=== PATIENT | female | born 1945 | race Caucasian/White ===

== ENCOUNTER 2018-11-09 08:13 | Inpatient (IN) | payer MEDICARE, BC ==
[2018-11-09] VITALS (13 sets, daily range): BP systolic 120–162; BP diastolic 65–81
[~2018-11-09] VITALS: Ht 162.6 cm; Wt 91.8 kg
[~2018-11-09 08:13] MED LIST: ALIS1TAB PO; CALC1TAB PO; CHOL100046 PO; DOCU100C40 PO; HYDR-3965 PO; MAGN64TA8 PO; POTA99TA6 PO; PREVCR VG; THYR65TA6 PO; UBID100C45 PO; VITA150T PO; [UNRECOGNIZED DRUG - OTHER] PO
[2018-11-09] MEDS ORDERED: normal saline 1000ML IV soln IVB ONE (08:25)
[2018-11-09] MEDS ORDERED: ondansetron/PF 4mg/2ml inj IV ONE (08:25)
[2018-11-09 09:06] LABS: BASOPHILS % (AUTO) 0.1 % (0-1); EOSINOPHILS % (AUTO) 0 % (0-6); HEMATOCRIT 46.4 % (35.0-45.0); HEMOGLOBIN 15.4 g/dl (12.0-16.0); LYMPHOCYTES # (AUTO) 0.8 X10'3 (1.1-4.8); LYMPHOCYTES % (AUTO) 8.9 % (21-51); MEAN CORPUSCULAR HEMOGLOBIN 29.7 PG (27.0-31.0); MEAN CORPUSCULAR HGB CONC 33.1 g/dL (33.0-36.5); MEAN CORPUSCULAR VOLUME 89.6 FL (78-98); MEAN PLATELET VOLUME 9.7 FL (7.4-10.4); MONOCYTES % (AUTO) 10.4 % (2-12); NEUTROPHILS # (AUTO) 7.4 X10'3 (1.8-7.7); NEUTROPHILS % (AUTO) 80.6 % (42-75); PLATELET COUNT 362 X10'3 (140-440); RED BLOOD COUNT 5.18 X10'6 (4.20-5.60); RED CELL DISTRIBUTION WIDTH 13.7 % (11.5-14.5); WHITE BLOOD COUNT 9.1 X10'3 (4.5-11.0)
[2018-11-09 09:13] LABS: ALANINE AMINOTRANSFERASE 31 U/L (12-78); ALBUMIN 3.6 G/DL (3.4-5.0); ALKALINE PHOSPHATASE 74 IU/L (46-116); ANION GAP 13 (8-16); ASPARTATE AMINO TRANSFERASE 25 U/L (10-37); BILIRUBIN,TOTAL 0.8 MG/DL (0.1-1.0); BLOOD UREA NITROGEN 41 MG/DL (7-18); BUN/CREATININE RATIO 27.7 (6.6-38.0); CALCIUM 9.9 MG/DL (8.5-10.1); CHLORIDE 99 MMOL/L (99-107); CREATININE 1.48 MG/DL (0.40-0.90); GLUCOSE 143 MG/DL (70-104); POTASSIUM 3.1 MMOL/L (3.5-5.1); SODIUM 139 MMOL/L (135-145); TOTAL PROTEIN 7.3 G/DL (6.4-8.2); eGFR 34 ML/MIN
[2018-11-09] MEDS ORDERED: ONDA4TAB6 PO (09:17)
[2018-11-09 09:41] LABS: CLARITY,URINE CLOUDY (Clear); COLOR,URINE YELLOW (Yellow); GLUCOSE, URINE NEGATIVE (Neg); KETONES,URINE TRACE mg/dl (Neg); LEUKOCYTE ESTERASE ,URINE TRACE (Neg); NITRITES, URINE NEGATIVE (Neg); OCCULT BLOOD,URINE NEGATIVE (Neg); PROTEIN,URINE >=300 mg/dl (Neg)
[2018-11-09 09:47] LABS: UA COLLECTION TYPE CLN CATCH MIDSTREAM
[2018-11-09 09:53] LABS: BACTERIA,URINE 2+ /HPF (Neg); SQUAMOUS EPITHELIAL CELL,UR MANY /LPF (FEW)
[2018-11-09 09:54] LABS: RBC,URINE 0-2 /HPF (0-2); WBC,URINE 0-4 /HPF (0-4)
[2018-11-09] MEDS ORDERED: potassium Cl 20 mEq SR tablet PO PRN ×2 (09:55)
[2018-11-09] MEDS ORDERED: magnesium 4gm in 100ml NS 100 ML IV PRN (09:55)
[2018-11-09] MEDS ORDERED: acetaminophen 650mg rectal suppository RC PRN (09:55)
[2018-11-09] MEDS ORDERED: ondansetron/PF 4mg/2ml inj IV PRN ×2 (09:55→17:20)
[2018-11-09] MEDS ORDERED: magnesium 2GM in 50ml NS 50 ML IV PRN (09:55)
[2018-11-09] MEDS ORDERED: potassium CL 10mEq/100ml bag 100 ML IV PRN ×2 (09:55)
[2018-11-09] MEDS ORDERED: normal saline 1000ml 1,000 ML IV SCH (09:55)
[2018-11-09] MEDS: potassium Cl 20mEq in NS 1,000 ML IV SCH ×2 (12:30→22:27)
--- NOTE | 2018-11-09 15:59 | NUR ---
Received patient report from ER nurse Shawn QUINTERO. Awaiting arrival to room 340B.
[2018-11-09] MEDS ORDERED: ringers solution, lacted 1,000 ML IV SCH (17:17)
[2018-11-09] MEDS ORDERED: proCHLORperazine 10 MG/2 ml inj IV PRN (17:20)
[2018-11-09] MEDS ORDERED: meperidine/PF 25mg/ml syringe IV PRN ×3 (17:20)
[2018-11-09] MEDS ORDERED: morphine 4 MG/ML inj SYRINge IV PRN ×2 (17:20)
--- NOTE | 2018-11-09 18:20 | NUR ---
Patient down to OR. I have received report from LEON Moreau and had the opportunity to ask questions and assume patient care.
--- NOTE | 2018-11-09 18:26 | NUR ---
Problems reprioritized. Patient report given, questions answered & plan of care reviewed with Aroldo QUINTERO.
[2018-11-09] MEDS ORDERED: neostigmine methylsulfate 1 MG/ML 10ml vial ONE (18:42)
[2018-11-09] MEDS ORDERED: glycopyrrolate 0.2mg/ml inj ONE (18:42)
[2018-11-09] MEDS ORDERED: ondansetron/PF 4mg/2ml inj ONE (18:42)
[2018-11-09] MEDS ORDERED: dexamethasone sod phosphate 10mg/ml inj ONE (18:42)
[2018-11-09] MEDS ORDERED: LIDOcaine 1%/PF 5ML 10 MG/ML VIAL ONE (18:42)
[2018-11-09] MEDS ORDERED: desflurane 240ml liquid inh. IH ONE (18:42)
[2018-11-09] MEDS ORDERED: fentaNYL /PF 50mcg/ml 5ml ampule ONE (18:45)
[2018-11-09] MEDS ORDERED: midazolam 2 mg/2 ml injection ONE (18:45)
[2018-11-09] MEDS ORDERED: propofol inj 20 ML IV ONE (18:46)
[2018-11-09] MEDS ORDERED: rocuronium 10mg/ml inj IV ONE (18:46)
[2018-11-09] MEDS ORDERED: ceFOXitin 2 GM ADDVANTGE BAG 50 ML IV ONE (19:10)
[2018-11-09] MEDS ORDERED: BUPIVAcaine/PF 2.5mg/ml (0.25%) 10ml vial ONE (19:40)
[2018-11-09] MEDS ORDERED: BUPIVACAINE liposomal/PF 13.3 MG/ML vial IM ONE ×2 (19:40)
[2018-11-09] MEDS ORDERED: BUPIVAcaine/PF 2.5 mg/ml (0.25%) 30ml vial ONE (19:41)
[2018-11-09] MEDS ORDERED: mupirocin 2% ointment 22GM ONE (19:57)
--- NOTE | 2018-11-09 20:36 | NUR ---
Received from OR via , accompanied by DR. WRIGHT, Anesthesiologist and report given by Anesthesiolgist.S/P EXP. LAP PER DR. MAHAN. PT. A X O X 4. APPROP. RESP. EVEN & UNLABORED. ABD. SOFT, [place]LAND BANDAGE DRGS W/ FEW FAINT SANG SHADOWS NOTED. MATAMOROS TO GRAVITY W/ CL. YELLOW URINE. LT. ARM IV PATENT. DENIES PAIN @ THIS TIME. NG TUBE DC'D PER ORDER DR. WRIGHT. PT. REASSURED.
--- NOTE | 2018-11-09 20:45 | NUR ---
REPORT GIVEN TO DADA CHURCH RN. CARE TRANSFERRED.
--- NOTE | 2018-11-09 20:46 | NUR ---
REPORT RECEIVED FROM GRIFFIN QUINTERO, CARE ASSUMED. PT IS AWAKE, ALERT, MOVING EXT X 4, SKIN WARM AND PINK, NO C/O PAIN, PIV PATENT LEFT FA 18G WITH BOLUS OF 500MLS ORDERED BY DR RUBIN, SCDS, MIDLINE ISLAND DRESSING WITH SHADOW OF SANQ DRAINAGE, MATAMOROS TO GRAVITY WITH DARK YELLOW URINE, RIGHT GROIN EXCORIATED, VSS.
--- NOTE | 2018-11-09 20:56 | NUR ---
report called from recovery room, Savita QUINTERO. awaiting pt arrival to unit
--- NOTE | 2018-11-09 21:06 | NUR ---
Report called to receiving nurse. Transferred via [facility] . Special Issues communicated to receiving nurse TOMAS QUINTERO. PT IS AWAKE, ALERT, MOVES EXT X 4, SKIN WARM AND PINK MATAMOROS EMPTIED AND TO GRAVITY, PIV PATENT WITH 500ML BOLUS ORDERED BY DR RUBIN IN PROGRESS, RIGHT GROIN ESCORIATED, MID[place] ISLAND DRESSING SHADOW WITH SANQ DRAINAGE, NO C/O PAIN, KIRSTIN ICE CHIPS, MEETS DISCHARGE CRITERIA.
--- NOTE | 2018-11-09 21:11 | NUR ---
pt brought to unit from recovery via gurney. placed in room, in no apparent distress. slight shadowing of island dressing over surgical site. 97.7F 120/75 97% 3L 18RR, 94HR Will continue to monitor
[2018-11-09] MEDS: heparin, porcine 5000 units/ml vial SQ SCH (21:53)
[2018-11-10] VITALS: BP 140/79
[2018-11-10 04:00] VITALS: BP 149/76
[2018-11-10 04:41] LABS: BASOPHILS % (AUTO) 0.1 % (0-1); EOSINOPHILS % (AUTO) 0 % (0-6); HEMATOCRIT 44.6 % (35.0-45.0); LYMPHOCYTES # (AUTO) 0.5 X10'3 (1.1-4.8); LYMPHOCYTES % (AUTO) 7.2 % (21-51); MEAN CORPUSCULAR HEMOGLOBIN 30.2 PG (27.0-31.0); MEAN CORPUSCULAR HGB CONC 33.5 g/dL (33.0-36.5); MEAN PLATELET VOLUME 9.7 FL (7.4-10.4); MONOCYTES # (AUTO) 0.9 X10'3 (0-0.9); NEUTROPHILS # (AUTO) 6.1 X10'3 (1.8-7.7); NEUTROPHILS % (AUTO) 80.7 % (42-75); PLATELET COUNT 322 X10'3 (140-440); RED BLOOD COUNT 4.95 X10'6 (4.20-5.60); RED CELL DISTRIBUTION WIDTH 13.7 % (11.5-14.5); WHITE BLOOD COUNT 7.6 X10'3 (4.5-11.0)
[2018-11-10 04:52] LABS: ALANINE AMINOTRANSFERASE 41 U/L (12-78); ALBUMIN 2.9 G/DL (3.4-5.0); ALBUMIN/GLOBULIN RATIO 0.9 (1.1-1.5); ALKALINE PHOSPHATASE 57 IU/L (46-116); ANION GAP 10 (8-16); ASPARTATE AMINO TRANSFERASE 28 U/L (10-37); BILIRUBIN,TOTAL 0.9 MG/DL (0.1-1.0); BLOOD UREA NITROGEN 49 MG/DL (7-18); CALCIUM 8.6 MG/DL (8.5-10.1); CHLORIDE 103 MMOL/L (99-107); CREATININE 1.53 MG/DL (0.40-0.90); GLUCOSE 134 MG/DL (70-104); MAGNESIUM 1.9 MG/DL (1.5-2.4); POTASSIUM 3.9 MMOL/L (3.5-5.1); SODIUM 141 MMOL/L (135-145); TOTAL CARBON DIOXIDE 27.9 MMOL/L (24-32); eGFR 33 ML/MIN
--- NOTE | 2018-11-10 06:00 | NUR ---
Patient in room [facility]. I have received report from Aroldo QUINTERO and had the opportunity to ask questions and assume patient care.
--- NOTE | 2018-11-10 06:10 | NUR ---
Problems reprioritized. Patient report given, questions answered & plan of care reviewed with LEON Moreau.
[2018-11-10] MEDS: K and/or MAG REPLACEMENT MC SCH (07:17)
[2018-11-10] MEDS: heparin, porcine 5000 units/ml vial SQ SCH ×2 (07:33→19:17)
[2018-11-10 08:25] VITALS: BP 143/69
[2018-11-10] MEDS: Potassium Cl inj 20 MEQ in normal saline 1000ml 990 ML IV SCH ×3 (08:34→21:10)
[2018-11-10] MEDS: potassium Cl 20mEq in NS 1,000 ML IV SCH (08:35)
[2018-11-10 11:03] VITALS: BP 149/77
[2018-11-10] MEDS ORDERED: calcium carbonate 500mg chew tablet PO PRN (11:10)
[2018-11-10] MEDS: NATURE THYROID 65 MG PO SCH (11:28)
[2018-11-10] MEDS: HYDROCHLOROTHIAZIDE PO SCH (11:29)
[2018-11-10] MEDS: ALISKIREN PO SCH (11:29)
[2018-11-10] MEDS ORDERED: proCHLORperazine 10 MG/2 ml inj IV PRN (13:00)
[2018-11-10 18:00] VITALS: BP 146/76
--- NOTE | 2018-11-10 18:39 | NUR ---
Patient in room [facility]. I have received report from LEON UMAÑA and had the opportunity to ask questions and assume patient care.
--- NOTE | 2018-11-10 18:39 | NUR ---
Problems reprioritized. Patient report given, questions answered & plan of care reviewed with Aroldo QUINTERO.
[2018-11-11] VITALS: BP 134/60
[2018-11-11 05:04] LABS: BASOPHILS % (AUTO) 0.3 % (0-1); EOSINOPHILS % (AUTO) 0.2 % (0-6); HEMATOCRIT 40.3 % (35.0-45.0); HEMOGLOBIN 13.5 g/dl (12.0-16.0); LYMPHOCYTES # (AUTO) 0.9 X10'3 (1.1-4.8); MEAN CORPUSCULAR HEMOGLOBIN 30.5 PG (27.0-31.0); MEAN CORPUSCULAR HGB CONC 33.5 g/dL (33.0-36.5); MEAN PLATELET VOLUME 9.6 FL (7.4-10.4); MONOCYTES # (AUTO) 0.7 X10'3 (0-0.9); MONOCYTES % (AUTO) 12.7 % (2-12); NEUTROPHILS # (AUTO) 4.2 X10'3 (1.8-7.7); NEUTROPHILS % (AUTO) 71.8 % (42-75); PLATELET COUNT 271 X10'3 (140-440); RED BLOOD COUNT 4.42 X10'6 (4.20-5.60); RED CELL DISTRIBUTION WIDTH 14.1 % (11.5-14.5); WHITE BLOOD COUNT 5.8 X10'3 (4.5-11.0)
[2018-11-11 05:21] LABS: ALANINE AMINOTRANSFERASE 30 U/L (12-78); ALBUMIN 2.5 G/DL (3.4-5.0); ALBUMIN/GLOBULIN RATIO 0.8 (1.1-1.5); ALKALINE PHOSPHATASE 50 IU/L (46-116); ANION GAP 8 (8-16); ASPARTATE AMINO TRANSFERASE 15 U/L (10-37); BILIRUBIN,TOTAL 0.5 MG/DL (0.1-1.0); BLOOD UREA NITROGEN 47 MG/DL (7-18); BUN/CREATININE RATIO 40.5 (6.6-38.0); CALCIUM 8.7 MG/DL (8.5-10.1); CHLORIDE 107 MMOL/L (99-107); CREATININE 1.16 MG/DL (0.40-0.90); GLUCOSE 100 MG/DL (70-104); MAGNESIUM 2.3 MG/DL (1.5-2.4); POTASSIUM 3.7 MMOL/L (3.5-5.1); SODIUM 145 MMOL/L (135-145); TOTAL CARBON DIOXIDE 29.7 MMOL/L (24-32); TOTAL PROTEIN 5.8 G/DL (6.4-8.2); eGFR 46 ML/MIN
[2018-11-11 06:00] VITALS: BP 157/67
--- NOTE | 2018-11-11 06:39 | NUR ---
Patient in room [facility]. I have received report from LEON Kendrick and had the opportunity to ask questions and assume patient care.
--- NOTE | 2018-11-11 06:39 | NUR ---
Problems reprioritized. Patient report given, questions answered & plan of care reviewed with LEON Hirsch.
[2018-11-11] MEDS: Potassium Cl inj 20 MEQ in normal saline 1000ml 990 ML IV SCH (07:18)
[2018-11-11] MEDS: HYDROCHLOROTHIAZIDE PO SCH (07:20)
[2018-11-11] MEDS: ALISKIREN PO SCH (07:20)
[2018-11-11] MEDS: heparin, porcine 5000 units/ml vial SQ SCH ×2 (07:21→20:47)
[2018-11-11] MEDS: NATURE THYROID 65 MG PO SCH (07:21)
[2018-11-11] MEDS: K and/or MAG REPLACEMENT MC SCH (08:00)
[2018-11-11 11:00] VITALS: BP 160/73
[2018-11-11] MEDS ORDERED: hydrALAZINE 20mg/ml inj. IV PRN (17:25)
[2018-11-11 18:00] VITALS: BP 142/72
--- NOTE | 2018-11-11 18:13 | NUR ---
Patient in room [facility]. I have received report from LEON Snell and had the opportunity to ask questions and assume patient care.
--- NOTE | 2018-11-11 18:38 | NUR ---
Problems reprioritized. Patient report given, questions answered & plan of care reviewed with LEON Kendrick.
[2018-11-11] MEDS: ESOMEPRAZOLE 40 MG VIAL IV SCH (19:46)
[2018-11-11 20:19] LABS: HEMATOCRIT 38.3 % (35.0-45.0); HEMOGLOBIN 12.6 g/dl (12.0-16.0); MEAN CORPUSCULAR HEMOGLOBIN 30.1 PG (27.0-31.0); MEAN CORPUSCULAR HGB CONC 32.8 g/dL (33.0-36.5); MEAN CORPUSCULAR VOLUME 91.6 FL (78-98); MEAN PLATELET VOLUME 9.4 FL (7.4-10.4); PLATELET COUNT 294 X10'3 (140-440); RED BLOOD COUNT 4.18 X10'6 (4.20-5.60); RED CELL DISTRIBUTION WIDTH 13.8 % (11.5-14.5); WHITE BLOOD COUNT 7.2 X10'3 (4.5-11.0)
[2018-11-12] VITALS: BP 122/68
[2018-11-12 04:00] VITALS: BP 147/72
[2018-11-12 04:07] LABS: BASOPHILS % (AUTO) 0.2 % (0-1); EOSINOPHILS % (AUTO) 0.3 % (0-6); HEMATOCRIT 36.8 % (35.0-45.0); HEMOGLOBIN 12.1 g/dl (12.0-16.0); LYMPHOCYTES # (AUTO) 1.3 X10'3 (1.1-4.8); LYMPHOCYTES % (AUTO) 18.4 % (21-51); MEAN CORPUSCULAR HGB CONC 32.9 g/dL (33.0-36.5); MEAN CORPUSCULAR VOLUME 91.1 FL (78-98); MEAN PLATELET VOLUME 9.5 FL (7.4-10.4); MONOCYTES # (AUTO) 0.8 X10'3 (0-0.9); MONOCYTES % (AUTO) 10.7 % (2-12); NEUTROPHILS % (AUTO) 70.4 % (42-75); PLATELET COUNT 276 X10'3 (140-440); RED BLOOD COUNT 4.04 X10'6 (4.20-5.60); RED CELL DISTRIBUTION WIDTH 13.9 % (11.5-14.5); WHITE BLOOD COUNT 7.1 X10'3 (4.5-11.0)
[2018-11-12 04:11] LABS: ALANINE AMINOTRANSFERASE 29 U/L (12-78); ALBUMIN 2.4 G/DL (3.4-5.0); ALBUMIN/GLOBULIN RATIO 0.8 (1.1-1.5); ALKALINE PHOSPHATASE 48 IU/L (46-116); ANION GAP 11 (8-16); ASPARTATE AMINO TRANSFERASE 18 U/L (10-37); BILIRUBIN,TOTAL 0.6 MG/DL (0.1-1.0); BLOOD UREA NITROGEN 36 MG/DL (7-18); BUN/CREATININE RATIO 39.6 (6.6-38.0); CALCIUM 8.1 MG/DL (8.5-10.1); CHLORIDE 108 MMOL/L (99-107); CREATININE 0.91 MG/DL (0.40-0.90); GLUCOSE 77 MG/DL (70-104); MAGNESIUM 1.9 MG/DL (1.5-2.4); POTASSIUM 3.5 MMOL/L (3.5-5.1); SODIUM 146 MMOL/L (135-145); TOTAL CARBON DIOXIDE 27.1 MMOL/L (24-32); TOTAL PROTEIN 5.6 G/DL (6.4-8.2); eGFR 60 ML/MIN
--- NOTE | 2018-11-12 06:35 | NUR ---
Problems reprioritized. Patient report given, questions answered & plan of care reviewed with LEON Snell
--- NOTE | 2018-11-12 06:35 | NUR ---
Patient in room [facility]. I have received report from LEON Kendrick and had the opportunity to ask questions and assume patient care.
[2018-11-12 07:00] VITALS: BP 160/82
[2018-11-12] MEDS: K and/or MAG REPLACEMENT MC SCH (08:00)
[2018-11-12] MEDS: ESOMEPRAZOLE 40 MG VIAL IV SCH ×2 (08:53→19:35)
[2018-11-12] MEDS: HYDROCHLOROTHIAZIDE PO SCH (08:54)
[2018-11-12] MEDS: heparin, porcine 5000 units/ml vial SQ SCH ×2 (08:54→19:36)
[2018-11-12] MEDS: ALISKIREN PO SCH (08:54)
[2018-11-12] MEDS: NATURE THYROID 65 MG PO SCH (08:54)
[2018-11-12] MEDS ORDERED: potassium Cl 20mEq in NS 1,000 ML IV SCH (09:40)
[2018-11-12 11:00] VITALS: BP 143/68
[2018-11-12] MEDS ORDERED: magnesium 4gm in 100ml NS 100 ML IV PRN (13:30)
[2018-11-12] MEDS ORDERED: potassium Cl 20 mEq SR tablet PO PRN (13:30)
[2018-11-12] MEDS ORDERED: potassium CL 10mEq/100ml bag 100 ML IV PRN (13:30)
[2018-11-12 18:00] VITALS: BP 157/76
--- NOTE | 2018-11-12 18:15 | NUR ---
Patient in room [facility]. I have received report from Eloy QUINTERO and had the opportunity to ask questions and assume patient care.
--- NOTE | 2018-11-12 18:28 | NUR ---
Problems reprioritized. Patient report given, questions answered & plan of care reviewed with LEON Dove.
[2018-11-13] VITALS: BP 166/64
[2018-11-13 04:57] LABS: BASOPHILS % (AUTO) 0.3 % (0-1); EOSINOPHILS % (AUTO) 0.3 % (0-6); HEMATOCRIT 34.8 % (35.0-45.0); HEMOGLOBIN 11.6 g/dl (12.0-16.0); LYMPHOCYTES # (AUTO) 1.6 X10'3 (1.1-4.8); LYMPHOCYTES % (AUTO) 16.4 % (21-51); MEAN CORPUSCULAR HGB CONC 33.2 g/dL (33.0-36.5); MEAN CORPUSCULAR VOLUME 90.4 FL (78-98); MEAN PLATELET VOLUME 9.5 FL (7.4-10.4); MONOCYTES # (AUTO) 0.9 X10'3 (0-0.9); MONOCYTES % (AUTO) 9.2 % (2-12); NEUTROPHILS % (AUTO) 73.8 % (42-75); PLATELET COUNT 275 X10'3 (140-440); RED BLOOD COUNT 3.85 X10'6 (4.20-5.60); RED CELL DISTRIBUTION WIDTH 13.8 % (11.5-14.5); WHITE BLOOD COUNT 9.5 X10'3 (4.5-11.0)
[2018-11-13 05:12] LABS: ALANINE AMINOTRANSFERASE 63 U/L (12-78); ALBUMIN 2.4 G/DL (3.4-5.0); ALBUMIN/GLOBULIN RATIO 0.8 (1.1-1.5); ALKALINE PHOSPHATASE 63 IU/L (46-116); ANION GAP 6 (8-16); ASPARTATE AMINO TRANSFERASE 37 U/L (10-37); BILIRUBIN,TOTAL 0.8 MG/DL (0.1-1.0); BLOOD UREA NITROGEN 24 MG/DL (7-18); BUN/CREATININE RATIO 28.2 (6.6-38.0); CHLORIDE 106 MMOL/L (99-107); CREATININE 0.85 MG/DL (0.40-0.90); GLUCOSE 96 MG/DL (70-104); MAGNESIUM 1.8 MG/DL (1.5-2.4); POTASSIUM 3.6 MMOL/L (3.5-5.1); SODIUM 141 MMOL/L (135-145); TOTAL CARBON DIOXIDE 29.2 MMOL/L (24-32); TOTAL PROTEIN 5.4 G/DL (6.4-8.2); eGFR 65 ML/MIN
--- NOTE | 2018-11-13 06:30 | NUR ---
Patient in room [facility]. I have received report from YULY QUINTERO and had the opportunity to ask questions and assume patient care.
--- NOTE | 2018-11-13 06:34 | NUR ---
Problems reprioritized. Patient report given, questions answered & plan of care reviewed with Jarrett RN.
[2018-11-13 07:00] VITALS: BP 151/70
[2018-11-13] MEDS: K and/or MAG REPLACEMENT MC SCH (08:00)
[2018-11-13] MEDS: HYDROCHLOROTHIAZIDE PO SCH (08:20)
[2018-11-13] MEDS: ALISKIREN PO SCH (08:20)
[2018-11-13] MEDS: NATURE THYROID 65 MG PO SCH (08:21)
[2018-11-13] MEDS: ESOMEPRAZOLE 40 MG VIAL IV SCH ×2 (08:22→20:26)
[2018-11-13] MEDS: heparin, porcine 5000 units/ml vial SQ SCH ×2 (08:24→20:40)
[2018-11-13 11:00] VITALS: BP 162/76
[2018-11-13] MEDS ORDERED: magnesium hydroxide 30ml (MOM) UD suspension PO ONE (12:30)
--- NOTE | 2018-11-13 13:00 | NUR ---
Problems reprioritized. Patient report given, questions answered & plan of care reviewed with MICHELLE QUINTERO.
[2018-11-13] MEDS: bisacodyl 10mg suppository rectal RC SCH ×3 (13:10→21:48)
[2018-11-13] MEDS: metoclopramide 5 mg/ml inj IV SCH ×2 (13:29→20:23)
--- NOTE | 2018-11-13 17:25 | NUR ---
Received report from Jarrett QUINTERO, assuming care.
--- NOTE | 2018-11-13 18:53 | NUR ---
Patient in room [facility]. I have received report from aMg QUINTERO and had the opportunity to ask questions and assume patient care.
[2018-11-13 19:00] VITALS: BP 125/83
--- NOTE | 2018-11-13 19:00 | NUR ---
Patient stated that she did not want the 2nd suppository at 8pm when scheduled as wanting to rest stating "I have been up and down to the toilet all day thinking it was going to happen, but still just getting loose brown runny. Nothing formed.
[2018-11-13 23:45] VITALS: BP 157/73
[2018-11-14 05:35] LABS: HEMOGLOBIN 12.3 g/dl (12.0-16.0)
[2018-11-14 05:38] LABS: BASOPHILS % (AUTO) 0.4 % (0-1); EOSINOPHILS % (AUTO) 0.1 % (0-6); LYMPHOCYTES # (AUTO) 1.5 X10'3 (1.1-4.8); LYMPHOCYTES % (AUTO) 13.3 % (21-51); MEAN CORPUSCULAR HEMOGLOBIN 30.4 PG (27.0-31.0); MEAN CORPUSCULAR VOLUME 89.3 FL (78-98); MEAN PLATELET VOLUME 9.7 FL (7.4-10.4); MONOCYTES % (AUTO) 9.1 % (2-12); NEUTROPHILS # (AUTO) 8.4 X10'3 (1.8-7.7); NEUTROPHILS % (AUTO) 77.1 % (42-75); PLATELET COUNT 306 X10'3 (140-440); RED BLOOD COUNT 4.04 X10'6 (4.20-5.60); RED CELL DISTRIBUTION WIDTH 13.2 % (11.5-14.5); WHITE BLOOD COUNT 10.9 X10'3 (4.5-11.0)
[2018-11-14 05:52] LABS: ALANINE AMINOTRANSFERASE 85 U/L (12-78); ALBUMIN 2.6 G/DL (3.4-5.0); ALBUMIN/GLOBULIN RATIO 0.8 (1.1-1.5); ALKALINE PHOSPHATASE 77 IU/L (46-116); ANION GAP 10 (8-16); ASPARTATE AMINO TRANSFERASE 49 U/L (10-37); BILIRUBIN,TOTAL 0.8 MG/DL (0.1-1.0); BLOOD UREA NITROGEN 15 MG/DL (7-18); BUN/CREATININE RATIO 18.5 (6.6-38.0); CALCIUM 8.4 MG/DL (8.5-10.1); CHLORIDE 100 MMOL/L (99-107); CREATININE 0.81 MG/DL (0.40-0.90); GLUCOSE 114 MG/DL (70-104); POTASSIUM 3.3 MMOL/L (3.5-5.1); SODIUM 138 MMOL/L (135-145); TOTAL CARBON DIOXIDE 27.8 MMOL/L (24-32); TOTAL PROTEIN 5.9 G/DL (6.4-8.2); eGFR 69 ML/MIN
--- NOTE | 2018-11-14 06:15 | NUR ---
Patient stated that this AM, she passed a formed brown stool about 2 inch by 2 inch.
--- NOTE | 2018-11-14 06:30 | NUR ---
Patient in room [facility]. I have received report from LEON High and had the opportunity to ask questions and assume patient care.
--- NOTE | 2018-11-14 06:40 | NUR ---
Problems reprioritized. Patient report given, questions answered & plan of care reviewed with Geri QUINTERO.
[2018-11-14 07:22] LABS: TOTAL CELLS COUNTED 100
[2018-11-14 07:23] LABS: PLATELET ESTIMATE NORMAL; POLYCHROMASIA FEW
[2018-11-14 08:00] VITALS: BP 136/66
[2018-11-14] MEDS: K and/or MAG REPLACEMENT MC SCH (08:00)
[2018-11-14] MEDS: HYDROCHLOROTHIAZIDE PO SCH (09:25)
[2018-11-14] MEDS: heparin, porcine 5000 units/ml vial SQ SCH (09:25)
[2018-11-14] MEDS: ESOMEPRAZOLE 40 MG VIAL IV SCH (09:25)
[2018-11-14] MEDS: ALISKIREN PO SCH (09:25)
[2018-11-14] MEDS: NATURE THYROID 65 MG PO SCH (09:26)
[2018-11-14] MEDS: bisacodyl 10mg suppository rectal RC SCH (09:26)
[2018-11-14] MEDS ORDERED: POTA20TA10 PO (11:24)
[2018-11-14] MEDS: potassium Cl 20 mEq SR tablet PO PRN ×2 (11:38→12:52)
[2018-11-14 12:00] VITALS: BP 146/80
--- NOTE | 2018-11-14 12:00 | NUR ---
page sent to Dr. Baxter - no diet specified on discharge. Pt is on full liquid while in hospital. Addendum: 11/14/18 at 1220 by Elizabeth Myers RN MD stated Cardiac diet for pt for d/c
--- NOTE | 2018-11-14 12:20 | NUR ---
Reviewed discharge instructions and new medication with pt. Pt verbalized understanding. Brandon[facility] to bring Potassium prescription to bedside. Pt awaiting Rx and son to pick her up. All questions answered.
[2018-11-14] MEDS ORDERED: lactose-reduced food (Ensure High Protein) 237ml bottle PO SCH (13:00)
== END 2018-11-14 13:20 | disposition home or self-care (01) | DRG 335 ==
LOC: ER 08:14 → SUR 3N 16:47 → CMPBEDREQ 19:26 → UNDODISIN 11-10 14:25
PROVIDERS: ADMIT Family Medicine; ATTEND Family Medicine
PROC: 3E0T3BZ Introduction of Anesthetic Agent into Peripheral Nerves and Plexi, Percutaneous Approach (ICD-10-PCS; 2018-11-09)
PROC: 0DN80ZZ Release Small Intestine, Open Approach (ICD-10-PCS; principal; 2018-11-10)
PROC: 0D9670Z Drainage of Stomach with Drainage Device, Via Natural or Artificial Opening (ICD-10-PCS; 2018-11-10)
DX: K56.51 Intestinal adhesions [bands], with partial obstruction (principal); N17.0 Acute kidney failure with tubular necrosis; E87.0 Hyperosmolality and hypernatremia; E03.9 Hypothyroidism, unspecified; E86.0 Dehydration; I10 Essential (primary) hypertension; E87.6 Hypokalemia; K59.00 Constipation, unspecified; Z88.2 Allergy status to sulfonamides; Z88.8 Allergy status to other drugs, medicaments and biological substances; Z88.1 Allergy status to other antibiotic agents; Z88.7 Allergy status to serum and vaccine; Z79.899 Other long term (current) drug therapy; Z79.890 Hormone replacement therapy; Z83.3 Family history of diabetes mellitus; Z87.891 Personal history of nicotine dependence; Z90.710 Acquired absence of both cervix and uterus; Z93.3 Colostomy status; Z90.49 Acquired absence of other specified parts of digestive tract; Z90.722 Acquired absence of ovaries, bilateral
CPT/HCPCS: 36415; 74018; 74176; 76937; 80053; 81001; 83735; 85025; 85027; 87081; 93005; 96374; 99285; A4618; A7000; C1758; C9290; G0378; J0694; J0780; J1100; J1644; J2250; J2405; J2704; J2710; J2765; J3010; J3480; J3490; J7030; J7120